=== PATIENT | male | born 1965 | race Caucasian/White ===

== ENCOUNTER 2017-02-21 00:42 | Emergency (ER) | payer BC ==
[~2017-02-21] VITALS: Ht 180.3 cm; Wt 80.8 kg
[~2017-02-21 00:42] MED LIST: AMPH1TAB36 PO; CIAL5TAB PO; MECL25 PO; RIVA15 PO; TYLE500T PO
[2017-02-21 00:52] VITALS: BP 106/78; PULSE 83; RESP 16; TEMP 99.7; O2SAT 97
[2017-02-21] MEDS ORDERED: RITA20TA PO (01:52)
--- NOTE | 2017-02-21 02:08 | PD ---
HPI Chief Complaint: Fever Time Seen by Provider: 02:02 Travel History International Travel<30 days: No Contact w/Intl Traveler<30days: No Traveled to known affect area: No History of Present Illness HPI The patient is a 51-year-old male that has had a nonproductive cough for one month. Today he started having a fever. He did not take his temperature at home but, according to his , he "felt hot". The patient took 1 g of Tylenol 20 minutes after midnight tonight. He does not smoke. 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.) Hepatitis: No Hiatal Hernia: No Hypertension: No Immune Disorder: No Medical other: Yes (hx of esophageal stricture hx of stroke) Musculoskeletal: No Neurologic: No Psychiatric: No Respiratory: No Immunizations Current: Yes Migraines: Yes Radiation Therapy: No Thyroid Disease: No Influenza Vaccination: Yes Past Surgical History Abdominal Surgery: Yes (LIPOCARCINOMA MASS REMOVED PELVIC 12/11/11, HERNIA REMOVED 2002) AICD: No Appendectomy: Yes Cardiac Surgery: Yes (PATENT [facility]-2002) Cholecystectomy: Yes Ear Surgery: No Endocrine Surgery: No Eye Surgery: No Gynecologic Surgery: No Joint Replacement: No Oral Surgery: No Pacemaker: No Other Surgery: Yes (SPLEENECTOMY NOVEMBER 2012) Social History Alcohol Use: No Tobacco Use: No Substance Use: No Allergies-Medications (Allergen,Severity, Reaction): Coded Allergies: No Known Allergies (Verified , 02/21/17) Reported Meds & Prescriptions Reported Meds & Active Scripts Active Reported Ritalin IR (Methylphenidate HCl) 20 Mg Tab 20 Mg PO DAILY Review of Systems Except as stated in HPI: all other systems reviewed are Neg Physical Exam Narrative GENERAL: The patient is alert, oriented 3 in no respiratory distress. His vital signs show temperature 99.7 but otherwise normal. Oximetry is 97% on room air. SKIN: Focused skin assessment warm/dry. HEAD: Atraumatic. Normocephalic. EYES: Pupils equal and round. No scleral icterus. No injection or drainage. ENT: No nasal bleeding or discharge. Mucous membranes pink and moist. NECK: Trachea midline. No JVD. CARDIOVASCULAR: Regular rate and rhythm. No murmur appreciated. RESPIRATORY: No accessory muscle use. A few widely scattered rhonchi are heard along with a few wheezes. Breath sounds equal bilaterally. GASTROINTESTINAL: Abdomen soft, non-tender, nondistended. Hepatic and splenic margins not palpable. MUSCULOSKELETAL: No obvious deformities. No clubbing. No cyanosis. No edema. NEUROLOGICAL: Awake and alert. No obvious cranial nerve deficits. Motor grossly within normal limits. Normal speech. PSYCHIATRIC: Appropriate mood and affect; insight and judgment normal. Data Data Last Documented VS Vital Signs Date Time Temp Pulse Resp B/P Pulse Ox O2 Delivery O2 Flow Rate FiO2 02/21/17 02:15 89 18 110/66 98 Room Air 02/21/17 00:52 99.7 Orders Complete Blood Count With Diff (02/21/17 02:03) Basic Metabolic Panel (Bmp) (02/21/17 02:03) Chest, Pa & Lat (02/21/17 02:03) Labs Laboratory Tests Test 02/21/17 02:10 White Blood Count 18.8 TH/MM3 Red Blood Count 4.61 MIL/MM3 Hemoglobin 14.4 GM/DL Hematocrit 42.1 % Mean Corpuscular Volume 91.3 FL Mean Corpuscular Hemoglobin 31.2 PG Mean Corpuscular Hemoglobin 34.1 % Concent Red Cell Distribution Width 13.5 % Platelet Count 286 TH/MM3 Mean Platelet Volume 8.0 FL Neutrophils (%) (Auto) 75.6 % Lymphocytes (%) (Auto) 8.5 % Monocytes (%) (Auto) 8.2 % Eosinophils (%) (Auto) 1.5 % Basophils (%) (Auto) 6.2 % Neutrophils # (Auto) 14.2 TH/MM3 Lymphocytes # (Auto) 1.6 TH/MM3 Monocytes # (Auto) 1.5 TH/MM3 Eosinophils # (Auto) 0.3 TH/MM3 Basophils # (Auto) 1.2 TH/MM3 CBC Comment AUTO DIFF Differential Total Cells 100 Counted Neutrophils % (Manual) 83 % Band Neutrophils % 1 % Lymphocytes % 6 % Monocytes % 10 % Neutrophils # (Manual) 15.8 TH/MM3 Differential Comment FINAL DIFF MANUAL Platelet Estimate NORMAL Platelet Morphology Comment NORMAL Tear Drop Cells 1+ Ovalocytes 1+ Crenated Cell 1+ Sodium Level 140 MEQ/L Potassium Level 4.0 MEQ/L Chloride Level 106 MEQ/L Carbon Dioxide Level 27.6 MEQ/L Anion Gap 6 MEQ/L Blood Urea Nitrogen 24 MG/DL Creatinine 1.40 MG/DL Estimat Glomerular Filtration 53 ML/MIN Rate Random Glucose 104 MG/DL Calcium Level 8.4 MG/DL MDM Medical Decision Making Medical Screen Exam Complete: Yes Emergency Medical Condition: Yes Medical Record Reviewed: Yes Interpretation(s) The CBC shows a white count of 18,800 with 83% neutrophils and a bandemia of 1% . The basic metabolic profile shows a BUN of 24, creatinine 1.4, GFR 53 and calcium 8.4. The chest x-ray does not show a pneumonia. Differential Diagnosis Pneumonia, bronchitis, allergic rhinitis, allergic cough Narrative Course The patient has a fairly impressive white count with a shift to the left. He has no other source of fever but his lungs. He has not taken steroids to explain the elevation of the white count. Plan: The patient will be given Zithromax 500 mg daily. He needs to follow-up with his primary care physician this week. Sepsis Criteria SIRS Criteria (2 or more): WBC > 19687, < 4000 or > 10% bands Sepsis Criteria (SIRS+source): Infect source susp/known Diagnosis Primary Impression: Bronchitis Additional Instructions: The Zithromax is one tablet taken daily for 5 days. Follow-up with your primary care physician this week. Med/Other Pt SpecificInfo: Prescription(s) given Scripts Azithromycin (Zithromax)500 Mg [id number] Mg PO DAILY 5 Days Ref 0 Prov:Farhad Marte MD 02/21/17 Disposition: 01 DISCHARGE HOME Condition: Stable Farhad Marte MD February 21, 2017 02:08
[2017-02-21 02:15] VITALS: BP 110/66; PULSE 89; RESP 18; O2SAT 98
[2017-02-21 02:21] LABS: AUTOMATED NEUTROPHIL # 14.2 TH/MM3 (1.8-7.7); BASOPHIL # 1.2 TH/MM3 (0-0.2); BASOPHIL % 6.2 % (0.0-2.0); EOSINOPHIL # 0.3 TH/MM3 (0-0.4); EOSINOPHIL % 1.5 % (0.0-4.0); HEMATOCRIT 42.1 % (39.0-51.0); LYMPH % 8.5 % (9.0-44.0); LYMPHOCYTE # 1.6 TH/MM3 (1.0-4.8); MEAN CELL VOLUME 91.3 FL (80.0-100.0); MEAN CORPUSCULAR HEMOGLOBIN 31.2 PG (27.0-34.0); MEAN CORPUSCULAR HGB CONC 34.1 % (32.0-36.0); MONO % 8.2 % (0.0-8.0); NEUT % 75.6 % (16.0-70.0); PLATELET COUNT 286 TH/MM3 (150-450); RED BLOOD COUNT 4.61 MIL/MM3 (4.50-5.90); RED CELL DISTRIBUTION WIDTH 13.5 % (11.6-17.2); WHITE BLOOD COUNT 18.8 TH/MM3 (4.0-11.0)
[2017-02-21 02:37] LABS: HEMO FLAGS AUTO DIFF
--- NOTE | 2017-02-21 02:53 | RADHPO ---
EXAM DATE/TIME: 02/21/2017 02:24 [facility] COMPARISON: CHEST PA & LAT, November 13, 2012, 21:45. INDICATIONS : Cough. MEDICAL HISTORY : Cerebrovascular disease. Retroperitoneal lipo sarcoma SURGICAL HISTORY : Coronary artery stent. Appendectomy. Nephrectomy, left. Cholecystectomy, Spleenectomy ENCOUNTER: Initial ACUITY: 1 month PAIN SCORE: 0/10 LOCATION: Bilateral chest FINDINGS: PA and lateral views of the chest demonstrate the lungs to be symmetrically aerated without evidence of mass, infiltrate or effusion. The cardiomediastinal contours are unremarkable. Osseous structure s are intact. CONCLUSION: 1. No active disease. Small metallic densities again seen overlying the heart. Yosvany Bermudez MD on February 21, 2017 at 2:50 Board Certified Radiologist. This report was verified electronically.
[2017-02-21 02:58] LABS: BICARBONATE 27.6 MEQ/L (21.0-32.0)
[2017-02-21 03:23] LABS: BANDS 1 % (0-6); NEUTROPHIL # MANUAL DIFF 15.8 TH/MM3 (1.8-7.7); OVALOCYTES 1+ (NORMAL); POLYS (SEG NEUTROPHILS) 83 % (16-70); WBC DIFF SAMPLE 100
[2017-02-21 03:24] LABS: CRENATED RBCS 1+ (NORMAL); PLATELET ESTIMATE SMEAR NORMAL (NORMAL); PLATELET MORPHOLOGY NORMAL (NORMAL); SCAN/DIFF FINAL DIFF MANUAL; TEARDROP RBCS 1+ (NORMAL)
[2017-02-21] MEDS ORDERED: ZITH500T PO (03:43)
[2017-02-21 03:58] VITALS: BP 112/67
[2017-02-21] MEDS ORDERED: AZITHROMYCIN 250 MG TAB PO ONE (04:00)
== END 2017-02-21 03:59 | disposition home or self-care (01) ==
LOC: PHED 00:42
DX: J40 Bronchitis, not specified as acute or chronic (principal)
CPT/HCPCS: 71020; 80048; 85007; 85027; 99284